=== PATIENT | male | born 1985 | race Caucasian/White ===

== ENCOUNTER → 2021-05-08 17:13 | Outpatient (CLI) | payer OTHER, SELFPAY ==
--- NOTE | ~2021-05-08 | MR_ITS ---
EXAMINATION: MR lumbar spine wo con DATE: 05/08/2021 18:01 INDICATION: Chronic bilateral low back pain. Right-sided sciatica. TECHNIQUE: Magnetic resonance imaging (MRI) of the lumbar spine was performed without intravenous con trast. Sequences included sagittal T2-weighted FSE, sagittal T2-weighted FS FSE, sagittal T1-weighted FSE, and axial T2-weighted FSE. COMPARISON: Lumbar spine MRI 07/12/2015 FINDINGS: Bone alignment is normal. There are Schmorl's nodes at multiple levels. There is mildly dec reased disc at L5-S1. The distal spinal cord signal intensity is normal. The conus medullaris is at T 12-L1. The following disc levels are specifically discussed: L1-L2: The disc does not extend beyond the endplate margin. There is mild bilateral facet joint osteo arthritis. There is no neural foraminal stenosis. There is no central canal stenosis. L2-L3: The disc does not extend beyond the endplate margin. There is mild bilateral facet joint osteo arthritis. There is no neural foraminal stenosis. There is no central canal stenosis. L3-L4: The disc does not extend beyond the endplate margin. There is mild bilateral facet joint osteo arthritis. There is no neural foraminal stenosis. There is no central canal stenosis. L4-L5: The disc does not extend beyond the endplate margin. There is mild bilateral facet joint osteo arthritis. There is no neural foraminal stenosis. There is no central canal stenosis. L5-S1: There is a central extrusion. There is mild bilateral facet joint osteoarthritis. There is no neural foraminal stenosis. There is mild central canal stenosis. IMPRESSION: 1. Mild lumbar spondylosis, stable from 07/12/2015. Reviewed, dictated and finalized at location A. [facility]
== END ==
PROVIDERS: PCP Family Medicine; Visit Provider Family Medicine
DX: M47.896 Other spondylosis, lumbar region (principal)
CPT/HCPCS: 72148